=== PATIENT | female | born 1995 | race Two or more races ===

== ENCOUNTER 2020-01-29 07:10 | Emergency (ER) | payer OTHER ==
--- NOTE | 2020-01-29 07:15 | ED Physician Documentation ---
PD HPI HEADACHE - Stated complaint Stated Complaint: HEADACHE - History of Present Illness Timing - onset: How many weeks ago (3) Timing - duration: Weeks (3) Timing - details: Gradual onset (She is started with the right frontal area pain and pressure about 3 weeks ago. At the time there was some nasal congestion but that cleared up. She is continued with a headache daily and continually. No visual changes. No focal weakness. Is 16 wks and talked with her OB yesterday.), Still present Worst headache ever?: Worst headache ever? (She rates the headache as mild to moderate and continual. No history of headaches in the past so this is her worst 1 but does not describe it as very severe nor abrupt) Location: Front, Right (feeling as though her eye is being pushed out.) Quality: Throbbing, Aching. No: Thunderclap Associated symptoms: Nausea. No: Fever, Stiff neck, Vomiting, Weakness, Numbness, Vision changes Improved by: Meds (Tylenol at times, it does help when she takes it.). No: Rest Worsened by: Light (She has found the computer screen to be worsening of her headache this past week. Her alarm bothered her this morning), Noise Contributing factors: Other (16 weeks , without problems. Had morning sickness worse in 1st trimester, has been better. She feels she is adequately hydrated.). No: Hypertension, Recent illness, Trauma Similar symptoms before: Has not had sx before Recently seen: Clinic (She had phone visits with her OB and her primary care yesterday and was directed to come to the ER for evaluation by her primary care. No medications were attempted.) Review of Systems Constitutional: denies: Fever, Chills Nose: reports: Congestion (2-3 weeks ago, improved), Sinus pressure / pain (her pain is behind right eye and in frontal area.). denies: Rhinorrhea / runny nose Throat: denies: Sore throat Respiratory: denies: Dyspnea, Cough GI: reports: Nausea. denies: Vomiting, Diarrhea : reports: Now EGA (16 weeks) Skin: denies: Rash, Lesions Neurologic: reports: Other (no troubles with vision nor speaking nor mood.). denies: Focal weakness, Numbness, Near syncope, Altered mental status Immunocompromised: denies: Immunocompromised PD PAST MEDICAL HISTORY - Past Medical History Past Medical History: No Respiratory: None Neuro: None - Present Medications Home Medications: Ambulatory Orders Medication Instructions Recorded Confirmed Amoxicillin 500 mg PO TID #15 capsule 01/29/20 Cetirizine [ZyrTEC] 10 mg PO DAILY #15 tablet 01/29/20 dexAMETHasone [Decadron] 4 mg PO DAILY #7 tablet 01/29/20 - Allergies Allergies/Adverse Reactions: Allergies Allergy/AdvReac Type Severity Reaction Status Date / Time No Known Drug Allergies Allergy Verified 01/29/20 07:27 PD ED PE NORMAL - Vitals Vital signs reviewed: Yes - General General: Alert and oriented X 3, No acute distress, Well developed/nourished - HEENT HEENT: PERRL, EOMI, Ears normal, Moist mucous membranes, Pharynx benign - Neck Neck: Supple, no meningeal sign, No adenopathy - Cardiac Cardiac: RRR, No murmur - Respiratory Respiratory: Clear bilaterally - Derm Derm: Normal color, Warm and dry, No rash - Neuro Neuro: Alert and oriented X 3, 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, No motor deficit, No sensory deficit, Normal speech Eye Opening: Spontaneous Motor: Obeys Commands Verbal: Oriented GCS Score: 15 Results - Vitals Vitals: Vital Signs - 24 hr 01/29/20 01/29/20 07:19 08:44 Temperature 36.5 C Heart Rate 92 74 Respiratory 16 18 Rate Blood Pressure 121/80 101/67 O2 Saturation 100 100 Oxygen O2 Source Room air - Labs Labs: Laboratory Tests 01/29/20 01/29/20 01/29/20 07:30 08:40 08:40 WBC 7.6 RBC 4.21 Hgb 11.8 L Hct 35.0 L MCV 83.1 MCH 28.0 MCHC 33.7 RDW 13.0 Plt Count 238 MPV 8.4 Neut # (Auto) 5.2 Lymph # (Auto) 1.7 [place] # (Auto) 0.6 Eos # (Auto) 0.0 Baso # (Auto) 0.0 Absolute Nucleated RBC 0.00 Nucleated RBC % 0.0 Sodium 133 L Potassium 3.6 Chloride 101 Carbon Dioxide 23 Anion Gap 9.0 BUN 7 Creatinine 0.5 Estimated GFR (MDRD) 154 Glucose 107 H Calcium 9.0 Total Bilirubin 0.6 AST 16 ALT 14 Alkaline Phosphatase 45 Total Protein 7.4 Albumin 3.6 Globulin 3.8 Albumin/Globulin Ratio 0.9 L Lipase 21 L Urine Color YELLOW Urine Clarity CLEAR Urine pH 7.0 Ur Specific [place] 1.020 Urine Protein NEGATIVE Urine Glucose (UA) NEGATIVE Urine Ketones NEGATIVE Urine Occult Blood NEGATIVE Urine Nitrite NEGATIVE Urine Bilirubin NEGATIVE Urine Urobilinogen 0.2 (NORMAL) Ur Leukocyte Esterase NEGATIVE Ur Microscopic Review NOT INDICATED Urine Culture Comments NOT INDICATED PD MEDICAL DECISION MAKING - ED course Complexity details: considered differential (Her blood pressure is okay at this time. We can check platelets and liver enzymes as well as a urine test but does not sound preeclamptic or help syndrome at this time. It may be sinus headache given some congestion early on. Also consider variant migraine for 3 weeks. Less likely structural.), d/w patient (With the patient is to do some blood tests and empirically treat for sinus or functional headache such as variant migraine. Deferring imaging at this time given the low probability of a mass lesion in general and in lieu of . If persisting headache despite treatment, consider imaging MRI.) Departure - Departure Disposition: 01 Home, Self Care Clinical Impression: Frontal headache Qualifiers: Weeks of gestation: 16 weeks Qualified Code(s): Z3A.16 - 16 weeks gestation of Condition: Stable Record reviewed to determine appropriate education?: Yes Instructions: ED Cephalgia Unspecified Follow-Up: ROBYN BALDERAS MD [Primary Care Provider] - Prescriptions: Amoxicillin 500 mg PO TID #15 capsule dexAMETHasone [Decadron] 4 mg PO DAILY #7 tablet Cetirizine [ZyrTEC] 10 mg PO DAILY #15 tablet Comments: Your basic blood tests are good as is your urine test. At this point I would presume either a sinus related headache and symptoms or possibly a variant migraine with daily headache. We would treat both of these with a trial of 5 to 7 days of a low-dose steroid for inflammation. Considering sinus, also add cetirizine antihistamine twice daily for a couple of days and then daily after that. You can use Tylenol 500 to 650 mg 4 times daily for the headache. Off work today and tomorrow to help with the symptoms. Recheck if not improving well over the next several days and resolved by 3 to 5 days. If you have persistent or worsening symptoms, consideration could be for imaging to ensure no structural abnormalities. MRI would be preferable and follow-up through your primary care. If you were to develop any purulent drainage or fevers, I would also add amoxicillin for consideration of infection. Discharge Date/Time: 01/29/20 09:35
[2020-01-29] MEDS ORDERED: ACETAMINOPHEN 325 MG TABLET PO STA (07:58)
[2020-01-29] MEDS ORDERED: CHERRY SYRUP 10 ML UDC PO ONE (07:58)
[2020-01-29] MEDS ORDERED: CETIRIZINE 10 MG TABLET PO STA (07:58)
[2020-01-29] MEDS ORDERED: DEXAMETHASONE 10 MG/ML VIAL PO STA (07:58)
[2020-01-29 08:34] LABS: BILIRUBIN,URINE NEGATIVE (NEGATIVE); CLARITY,URINE CLEAR (CLEAR); GLUCOSE, URINE (UA) NEGATIVE (NEGATIVE); KETONES,URINE (UA) NEGATIVE (NEGATIVE); LEUKOCYTE ESTERASE, URINE NEGATIVE (NEGATIVE); NITRITE,URINE NEGATIVE (NEGATIVE); OCCULT BLOOD,URINE NEGATIVE (NEGATIVE); PROTEIN,URINE NEGATIVE (NEGATIVE); UROBILINOGEN,URINE 0.2 (NORMAL) E.U./dL (NORMAL)
[2020-01-29 08:46] VITALS: BP 101/67
[2020-01-29 08:47] LABS: BASOPHILS % (AUTO) 0.4 %; EOSINOPHILS % (AUTO) 0.5 %; HGB - HEMOGLOBIN 11.8 g/dL (12.0-16.0); LYMPHOCYTES # (AUTO) 1.7 10^3/uL (1.5-3.5); LYMPHOCYTES % (AUTO) 22.3 %; MEAN CORPUSCULAR HGB CONC 33.7 g/dL (32.0-36.0); MEAN CORPUSCULAR VOLUME 83.1 fL (81.0-99.0); MEAN PLATELET VOLUME 8.4 fL (7.9-10.8); MONOCYTES # (AUTO) 0.6 10^3/uL (0.0-1.0); MONOCYTES % (AUTO) 7.6 %; NEUTROPHILS # (AUTO) 5.2 10^3/uL (1.5-6.6); NEUTROPHILS % (AUTO) 68.7 %; PLT - PLATELET COUNT 238 10^3/uL (130-450); RED BLOOD COUNT 4.21 10^6/uL (4.20-5.40); WHITE BLOOD COUNT 7.6 x10^3/uL (4.8-10.8)
[2020-01-29 08:58] LABS: ALBUMIN 3.6 g/dL (3.2-5.5); ALBUMIN/GLOBULIN RATIO 0.9 (1.0-2.2); BILIRUBIN,TOTAL 0.6 mg/dL (0.2-1.0); CREATININE 0.5 mg/dL (0.4-1.0); TOTAL PROTEIN 7.4 g/dL (6.7-8.2)
== END 2020-01-29 09:35 | disposition home or self-care (01) ==
LOC: ED 07:10
DX: O99.891 Other specified diseases and conditions complicating pregnancy (principal); R51.9 Headache, unspecified; Z3A.16 16 weeks gestation of pregnancy
CPT/HCPCS: 36415; 80053; 81003; 83690; 85025; 99283; 99284; A9270; 81001; 87086

== ENCOUNTER 2020-02-29 15:41 | Outpatient (CLI) | payer OTHER ==
[2020-02-29 16:24] VITALS: BP 118/78
--- NOTE | 2020-02-29 17:53 | HISTORY & PHYSICAL EXAMINATION ---
DATE OF SERVICE: 02/29/2020 Physician: Stefan Beltran MD IDENTIFICATION: The patient is a 24-year-old G1, female whose EDC who reports her EDC is July 2020. This makes her 20 weeks and 6 days. We attempted several times to obtain her records from [facility] and have been unsuccessful. CHIEF COMPLAINT: Decreased motion. HISTORY OF PRESENT ILLNESS: The patient states she has noted no motion since last evening. She states she has felt motion prior to that. She has tried taking fluids or carbohydrates and sensing fluid was unsuccessful. Upon arrival here the nurse was able to palpate as well as hear heart tones and also note motion. The patient's last appointment was 02/13, at which time she had an ultrasound for anatomy. The patient's repeat reports that she has had no notification of any abnormalities. She denies any bleeding. She denies any trauma. She denies any falls. She reports her blood type to be O positive. She denies any other problems throughout her . PAST MEDICAL HISTORY: Positive for some headaches. PAST SURGICAL HISTORY: Negative. ALLERGIES: NONE KNOWN. CURRENT MEDICATIONS: vitamins as well as Tylenol for headaches. HABITS: The patient denies use of alcohol, tobacco, street or addictive drugs. SOCIAL HISTORY: The patient is [employer]. She lives with an active duty person and is in a safe, stable environment. 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 REVIEW OF SYSTEMS: Positive only for headaches. PHYSICAL EXAMINATION VITAL SIGNS: Temperature 37.8, pulse is 97, blood pressure 118/78, saturation 100%. HEENT: Pupils are equal, round. Extraocular muscles are intact. Mouth was not checked in that she had a mask and placed. Thyroid is not palpably enlarged. HEART: Regular rate and rhythm without murmurs. LUNGS: Lung [place] are clear without rales or wheezes. BACK: No spinal or CVA tenderness noted. ABDOMEN: Soft, nontender at this time. No pelvic was performed at this time as it is not indicated. IMPRESSION 1. A 24-year-old female at 20.6 weeks. 2. The patient has an inability to sense motion. PLAN: We have noted cardiac activity as well as palpated motion by the nurse. The patient is reassured. I have counseled her that detecting motion at the end of the day when she has nothing else to fill her mind with and do this after she eats. TD: 02/29/2020 17:01 MAYRA
== END 2020-02-29 17:00 | disposition home or self-care (01) ==
LOC: WFO 15:41 → FBP 15:44 → WFO 17:00
PROVIDERS: ATTEND Obstetrics & Gynecology
DX: O36.8120 Decreased fetal movements, second trimester, not applicable or unspecified (principal); Z3A.20 20 weeks gestation of pregnancy
CPT/HCPCS: 99213

== ENCOUNTER 2020-03-21 20:19 | Emergency (ER) | payer OTHER ==
[2020-03-21 20:59] LABS: BILIRUBIN,URINE NEGATIVE (NEGATIVE); GLUCOSE, URINE (UA) NEGATIVE (NEGATIVE); KETONES,URINE (UA) NEGATIVE (NEGATIVE); LEUKOCYTE ESTERASE, URINE NEGATIVE (NEGATIVE); NITRITE,URINE NEGATIVE (NEGATIVE); OCCULT BLOOD,URINE NEGATIVE (NEGATIVE); PROTEIN,URINE NEGATIVE (NEGATIVE); UROBILINOGEN,URINE 0.2 (NORMAL) E.U./dL (NORMAL)
[2020-03-21 21:01] LABS: CLARITY,URINE CLEAR (CLEAR)
--- NOTE | 2020-03-21 21:56 | ED Physician Documentation ---
PD HPI FEVER - Stated complaint Stated Complaint: FEVER/24 WEEKS - Chief complaint Chief Complaint: Fever - History obtained from History obtained from: Patient - History of Present Illness Timing - onset: Today Timing details: Abrupt onset Pain level max: 0 Pain level now: 0 Associated symptoms: Chills, Sweats (mild). No: Ear pain, Nasal congestion, Rhinorrhea, Sore throat, Dry cough, Productive cough, Chest pain, Dyspnea, Abdominal pain, NVD, Urinary symptoms, Rash/skin lesion Recently seen: Not recently seen - Additional information Additional information: patient is approximately 24 weeks . c/o fever Tmax 101 noted this evening. She has had chills, mild diaphoresis but otherwise feeling well. Review of Systems Constitutional: reports: Fever, Chills, Sweats. denies: Fatigue Throat: denies: Sore throat Cardiac: denies: Chest pain / pressure Respiratory: denies: Dyspnea, Cough GI: denies: Abdominal Pain, Nausea, Vomiting : reports: Now EGA (24 weeks). 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) - Past Surgical History Past Surgical History: No - Allergies Allergies/Adverse Reactions: Allergies Allergy/AdvReac Type Severity Reaction Status Date / Time No Known Drug Allergies Allergy Verified 03/21/20 20:22 - Social History Does the pt smoke?: No Smoking Status: Never smoker Does the pt drink ETOH?: No Does the pt have substance abuse?: No - Immunizations Immunizations are current?: Yes - POLST Patient has POLST: No PD ED PE NORMAL - Vitals Vital signs reviewed: Yes - General General: Alert and oriented X 3, No acute distress, Well developed/nourished - HEENT HEENT: Moist mucous membranes - Neck Neck: Supple, no meningeal sign - Cardiac Cardiac: RRR, No murmur - Respiratory Respiratory: No respiratory distress, Clear bilaterally - Abdomen Abdomen: Soft, Non tender Results - Vitals Vitals: Vital Signs - 24 hr 03/21/20 03/21/20 20:20 23:50 Temperature 37.3 C 37.0 C Heart Rate 119 H 90 Respiratory 18 16 Rate Blood Pressure 111/69 112/70 O2 Saturation 96 98 Oxygen O2 Source Room air - Labs Labs: Laboratory Tests 03/21/20 03/21/20 20:50 22:16 Urine Color YELLOW Urine Clarity CLEAR Urine pH 7.0 Ur Specific [place] 1.015 Urine Protein NEGATIVE Urine Glucose (UA) NEGATIVE Urine Ketones NEGATIVE Urine Occult Blood NEGATIVE Urine Nitrite NEGATIVE Urine Bilirubin NEGATIVE Urine Urobilinogen 0.2 (NORMAL) Ur Leukocyte Esterase NEGATIVE Ur Microscopic Review NOT INDICATED Urine Culture Comments NOT INDICATED Nasal Adenovirus (PCR) NOT DETECTED Nasal B. parapertussis DNA (PCR) NOT DETECTED Nasal Coronavir 229E PCR NOT DETECTED Nasal Coronavir HKU1 PCR NOT DETECTED Nasal Coronavir NL63 PCR NOT DETECTED Nasal Coronavir OC43 PCR NOT DETECTED Nasal Enterovir/Rhinovir PCR NOT DETECTED Nasal Influenza B PCR NOT DETECTED Nasal Influenza A PCR NOT DETECTED Nasal Parainfluen 1 PCR NOT DETECTED Nasal Parainfluen 2 PCR NOT DETECTED Nasal Parainfluen 3 PCR NOT DETECTED Nasal Parainfluen 4 PCR NOT DETECTED Nasal RSV (PCR) NOT DETECTED Nasal B.pertussis DNA PCR NOT DETECTED Nasal C.pneumoniae (PCR) NOT DETECTED Tk Human Metapneumo PCR NOT DETECTED Nasal M.pneumoniae (PCR) NOT DETECTED Nasal SARS-CoV-2 (PCR) NOT DETECTED PD MEDICAL DECISION MAKING - ED course Complexity details: reviewed results, re-evaluated patient, considered differential, d/w patient Departure - Departure Disposition: 01 Home, Self Care Clinical Impression: , Fever Condition: Good Instructions: ED Fever Unconf Cause Forms: Activity restrictions Discharge Date/Time: 03/21/20 23:50
[2020-03-21 23:21] LABS: C. PNEUMONIAE- RESP PCR PANEL NOT DETECTED
[2020-03-21 23:52] VITALS: BP 112/70
== END 2020-03-21 23:50 | disposition home or self-care (01) ==
LOC: ED 20:19
DX: O99.891 Other specified diseases and conditions complicating pregnancy (principal); R50.9 Fever, unspecified; Z3A.24 24 weeks gestation of pregnancy; Z20.828 Contact with and (suspected) exposure to other viral communicable diseases
CPT/HCPCS: 0202U; 81003; 99282; 99283; 81001; 87086

== ENCOUNTER 2020-04-19 12:13 | Outpatient (CLI) | payer OTHER | END 2020-04-19 12:14 | disposition home or self-care (01) | LOC: LAB 12:13 | PROVIDERS: ATTEND Obstetrics & Gynecology | DX: Z36.89 Encounter for other specified antenatal screening (principal) | CPT/HCPCS: 36415; 82950 ==

== ENCOUNTER 2020-05-09 18:43 | Outpatient (CLI) | payer OTHER ==
--- NOTE | 2020-05-12 17:20 | Ultrasound Report ---
PROCEDURE: OB F/U or Repeat INDICATIONS: UTERINE SIZE/DATE DISCREPANCY OUTSIDE/PRIOR DATING DATA: Last menstrual period (LMP): 10/03/2019. LMP-based estimated date of delivery (ASHLEE): 07/09/2020. First dating scan (date and location): 05/09/2020, this study. Estimated date of delivery (ASHLEE) from first dating scan: 07/09/2020, from provider. TECHNIQUE: Real-time scanning was performed of the fetus, with image documentation and biometric measurements. Endovaginal scanning: Not needed COMPARISON: No prior imaging available for review.. FINDINGS: General: A single living intrauterine gestation is present. Presentation: Vertex Placenta: Placental position is posterior, without previa. Amniotic fluid index: 11.1 cm, 16.9 percentile for gestational age. heart rate: 149 beats per minute. Maternal cervical canal: 4.0 cm long; normal length is 2.5 cm or more. biometrics: Biparietal diameter: 8.3 cm, 33 weeks 1 day Head circumference: 29.7 cm, 32 weeks 6 days Abdominal circumference: 27.7 cm, 31 weeks 6 days Femur length: 6.2 cm, 32 weeks 1 day Estimated gestational age from initial scan: not applicable. Composite gestational age from present scan: 32 weeks 4 days Estimated weight and percentile: 1913 g, 68th percentile Measurement variability in biometric dating: +/- 10 days from 12-20 weeks gestation, +/- 2 weeks from 20-30 weeks gestation, +/- 3 weeks at 30 weeks gestation or more. Other: Limited evaluation of the anatomy, no abnormality seen. IMPRESSION: Appropriate interval growth, delivery date is projected to be centered on 07/09/2020 from information provided by the provider. Limited evaluation of anatomic assessment due to current gestational age. No anomalies suspected based on the images from this study. Normal amniotic fluid, c urrent estimated weight is 1913 g. Reviewed by: Len Canas MD on 05/12/2020 5:18 PM PST Approved by: Len Canas MD on 05/12/2020 5:18 PM PST Station ID: [id number]
== END 2020-05-09 18:44 | disposition home or self-care (01) ==
LOC: DI 18:43
PROVIDERS: ATTEND Advanced Practice Midwife
DX: O26.849 Uterine size-date discrepancy, unspecified trimester (principal); Z3A.32 32 weeks gestation of pregnancy

== ENCOUNTER 2020-06-01 11:31 | Outpatient (CLI) | payer OTHER ==
[2020-06-01 11:53] LABS: HGB - HEMOGLOBIN 9.8 g/dL (12.0-16.0); MEAN CORPUSCULAR HEMOGLOBIN 23.6 pg (27.0-31.0); MEAN CORPUSCULAR HGB CONC 30.2 g/dL (32.0-36.0); MEAN CORPUSCULAR VOLUME 78.3 fL (81.0-99.0); MEAN PLATELET VOLUME 9.1 fL (7.9-10.8); RED BLOOD COUNT 4.15 10^6/uL (4.20-5.40); RED CELL DISTRIBUTION WIDTH 14.3 % (12.0-15.0)
[2020-06-01 11:55] LABS: CREATININE,URINE 164.9 mg/dL; PROTEIN/CREATININE RATIO,URINE 0.1 (<=0.2)
[2020-06-01 12:03] LABS: ALBUMIN/GLOBULIN RATIO 0.7 (1.0-2.2); BILIRUBIN,TOTAL 0.7 mg/dL (0.2-1.0); CREATININE 0.6 mg/dL (0.4-1.0); TOTAL PROTEIN 7.1 g/dL (6.7-8.2)
== END 2020-06-01 11:32 | disposition home or self-care (01) ==
LOC: LAB 11:31
PROVIDERS: ATTEND Nurse Practitioner Obstetrics & Gynecology
DX: R10.11 Right upper quadrant pain (principal); L29.9 Pruritus, unspecified
CPT/HCPCS: 36415; 80053; 82542; 82570; 84156; 85027

== ENCOUNTER 2020-06-13 07:00 | Outpatient (CLI) | payer OTHER | END 2020-06-13 23:59 | disposition home or self-care (01) | LOC: LAB.R 07:00 | PROVIDERS: ATTEND Advanced Practice Midwife | DX: Z34.90 Encounter for supervision of normal pregnancy, unspecified, unspecified trimester (principal); Z36.85 Encounter for antenatal screening for Streptococcus B | CPT/HCPCS: 87797 ==

== ENCOUNTER 2020-07-06 08:08 | Inpatient (IN) | payer OTHER ==
[2020-07-06] MEDS ORDERED: fentaNYL 100 MCG/2 ML VIAL IVP PRN (09:38)
[2020-07-06] MEDS ORDERED: LIDOCAINE-MPF 1% 30 ML VIAL ID PRN (09:38)
[2020-07-06] MEDS ORDERED: SODIUM CHLORIDE FLUSH 0.9% 10 ML SYRINGE IVP PRN (09:38)
[2020-07-06] MEDS ORDERED: miSOPROStoL 200 MCG TABLET BC PRN (09:38)
[2020-07-06] MEDS ORDERED: OXYTOCIN/SODIUM CHLORIDE 500 ML IV PRN (09:38)
[2020-07-06] MEDS ORDERED: CARBOPROST TROMETHAMINE 250 MCG/ML AMP IM PRN (09:38)
[2020-07-06] MEDS ORDERED: TRANEXAMIC ACID IN NACL 1,000 MG/100 ML BAG IV PRN (09:38)
[2020-07-06] MEDS ORDERED: METOCLOPRAMIDE 10 MG/2 ML VIAL IVP PRN (09:38)
[2020-07-06] MEDS ORDERED: OXYTOCIN 10 UNIT/ML VIAL IM PRN (09:38)
[2020-07-06] MEDS ORDERED: METHYLERGONOVINE 0.2 MG/ML VIAL IM PRN (09:38)
[2020-07-06] MEDS ORDERED: ONDANSETRON 4 MG/2 ML VIAL IVP PRN (09:38)
[2020-07-06 09:47] LABS: BASOPHILS % (AUTO) 0.2 %; EOSINOPHILS % (AUTO) 0.4 %; HCT - HEMATOCRIT 33.1 % (37.0-47.0); LYMPHOCYTES # (AUTO) 1.8 10^3/uL (1.5-3.5); LYMPHOCYTES % (AUTO) 20.1 %; MEAN CORPUSCULAR HEMOGLOBIN 21.7 pg (27.0-31.0); MEAN CORPUSCULAR HGB CONC 30.2 g/dL (32.0-36.0); MEAN CORPUSCULAR VOLUME 71.8 fL (81.0-99.0); MEAN PLATELET VOLUME 9.7 fL (7.9-10.8); MONOCYTES # (AUTO) 0.7 10^3/uL (0.0-1.0); MONOCYTES % (AUTO) 7.2 %; NEUTROPHILS # (AUTO) 6.5 10^3/uL (1.5-6.6); NEUTROPHILS % (AUTO) 71.5 %; PLT - PLATELET COUNT 349 10^3/uL (130-450); RED BLOOD COUNT 4.61 10^6/uL (4.20-5.40); RED CELL DISTRIBUTION WIDTH 16.3 % (12.0-15.0); WHITE BLOOD COUNT 9.1 x10^3/uL (4.8-10.8)
[2020-07-06] MEDS ORDERED: miSOPROStoL 100 MCG TABLET BC SCH ×2 (10:00→14:45)
--- NOTE | 2020-07-06 10:08 | HISTORY & PHYSICAL EXAMINATION ---
Admit History - : 2 Parity: 0 Premature: 0 Ectopic: 0 : 1 Risk/History: positive: None Complications This : positive: None Smoking Status: Former smoker - Mother's Labs Mother's Blood Type: positive: O Mother's RH: positive: Positive GBS: positive: Group B Step Negative Rubella Status: positive: Immune - Other Maternal History Other Maternal History: -24yo G2P*0010 at 39.4 wks gestation who presents to Labor and Delivery for pre- induction cervical ripening -Reports movement -Denies VB/LOF -Reports unaware of contractions, rates 0/10 pain - care with [facility] which has been adequate after narciso from [facility] at 25.5wks - Complications *none -Dating Criteria *LMP 10/03/2019 gives ASHLEE 07/09/2020 *US on 12/16/2019 at 11+1 wga gives ASHLEE 07/05/2020, cwd -OB Hx *G1: 2019- SAB *G2:current -Medications * vitamin-daily *Fe 325mg daily -Allergies *NKDA -Medical History *Non contributory -Surgical History *None -Family History *Father- [place] at 46yo *Brother- HTN -Social History *Former Smoker - Labs, Immunizations, and Findings DATING: LMP 10/03/2019 gives ASHLEE 07/09/2020 US on 12/16/2019 at 11+1 wga gives ASHLEE 07/05/2020, cwd O pos/Rub imm VZV- immune Quad wnl FAS 52%ile, CL 3.7 cm, 3VC, right lateral placenta, FAS wnl, possible small anterior fibroid 05/09/2020 Growth & TRINO: TRINO 11.1 (16.9%); EFW 68% GCCT neg Flu vaccine given TDAP: 04/21/2020 Glucola: 112 HSV: denies in self and partner GBS at 36.2wks- NEGATIVE Breast pump RX: Has alternative plan- will send for Provider signature MOD: . Boy: Bethany "Reyna". Husb: Mariano (stationed elsewhere, will desire induction due to requested leave)' IOL scheduled for 07/06/2020 at 0730. Consented. 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 Condoms -SVE 280/-2/soft/post -Vertex by digital exam -EFW by fay's 7.5# - Physical Exam: Normocephalic, atraumatic Heart RRR w/o murmur Lungs clear and equal bilaterally Abdomen gravid, soft, nontender Edema- none Psych- wnl -FHTs per flowsheet -Assessment *24yo at 39.4wks gestation who presents for elective induction *Nesbitt Score 7- requires cervical ripening *Uterine activity mild by palpation- will give half dose of misoprostol * Heart Tones- Category I -Plan *Admit to OBS(until active labor, SROM, AROM, epidural, or pitocin) *Cervical ripening with Misoprostol (25mcg BC) *Monitoring- Continuous *Comfort measures available- position changes, whirlpool tub, fentanyl, and epid ural per maternal preference *Diet/Activity- per maternal preference *Anticipate Meds/Allgy - Allergies Allergies/Adverse Reactions: Allergies Allergy/AdvReac Type Severity Reaction Status Date / Time No Known Drug Allergies Allergy Verified 03/21/20 20:22 Review of Systems - All Other Systems All Other Systems: reports: Reviewed and negative Physical - Abdominal Exam Vital Signs: Temp Pulse Resp BP Pulse Ox 37.4 C 107 H 16 120/80 07/06/20 08:35 07/06/20 08:35 07/06/20 08:35 07/06/20 08:35 Contraction Frequency (min/apart): 2-3 Contraction Intensity: positive: Mild (by palpation, not felt by patient) Uterine Resting Tone: positive: Soft - Monitoring Heart Rate Baseline: 135 Strip Review: positive: Category I (moderate variability, accels 15x15, no decels) - Presentation Presentation: positive: Vertex (by digital exam) - Vaginal Exam Membranes: positive: Membranes intact Dilation (in cm): 2 Effacement (%): 80 Station: positive: -2 Cervical Position: positive: Posterior Plan for Labor - Plan For Labor I expect patient to be DC'd or transferred within 96 hours.: Yes
[2020-07-06] MEDS ORDERED: SODIUM CHLORIDE FLUSH 0.9% 10 ML SYRINGE IVP SCH (17:00)
[2020-07-06] MEDS: LACTATED RINGERS 1,000 ML IV SCH ×2 (17:00→20:27)
[2020-07-06] MEDS ORDERED: ROPIVACAINE 0.2% 200 MG/100 ML BAG EP ONE (18:59)
[2020-07-06] MEDS ORDERED: ROPIVACAINE 0.2% 200 MG/100 ML BAG EP PRN (19:17)
[2020-07-06] MEDS ORDERED: NALOXONE 0.4 MG/ML VIAL IVP PRN (19:17)
[2020-07-06] MEDS ORDERED: ePHEDrine 50 MG/ML VIAL IVP PRN (19:17)
[2020-07-06] MEDS ORDERED: NALBUPHINE 10 MG/ML AMP IVP PRN (19:17)
--- NOTE | 2020-07-06 19:17 | ANESTHESIA ---
Pre-Anesthesia VS, & Labs - Diagnosis active labor - Procedure vaginal delivery Vital Signs: Temp Pulse Resp BP Pulse Ox 37.4 C 107 H 16 120/80 07/06/20 08:35 07/06/20 08:35 07/06/20 08:35 07/06/20 08:35 Height: 5 ft Weight (kg): 75.296 kg Body Mass Index: 32.4 BMI Classification: Obese - NPO Other (clear liquids) - Is Patient ?: Yes - Lab Results Current Lab Results: Laboratory Tests 07/06/20 08:50: Blood Type O POSITIVE, Antibody Screen NEGATIVE 07/06/20 08:50: WBC 9.1, RBC 4.61, Hgb 10.0 L, Hct 33.1 L, MCV 71.8 L, MCH 21.7 L, MCHC 30.2 L, RDW 16.3 H, Plt Count 349, MPV 9.7, Neut # (Auto) 6.5, Lymph # (Auto) 1.8, [place] # (Auto) 0.7, Eos # (Auto) 0.0, Baso # (Auto) 0.0, Absolute Nucleated RBC 0.00, Nucleated RBC % 0.0 Fish Bones: 07/06/20 08:50 Home Medications and Allergies Active Medications Acetaminophen (Acetaminophen 325 Mg Tablet) 650 mg PO Q6H PRN PRN Reason: Pain or Fever Carboprost Tromethamine (Carboprost Tromethamine 250 Mcg/Ml Amp) 250 mcg IM Q15M PRN PRN Reason: Step 4: Hemorrhage protocol Stop: 07/11/20 09:41 Fentanyl (Fentanyl 100 Mcg/2 Ml Vial) 50 mcg IVP Q1H PRN PRN Reason: PAIN Oxytocin/Sodium Chloride (Pitocin/Sodium Chloride) 500 mls @ 999 mls/hr IV PRN PRN; Protocol PRN Reason: POST- HEMORR PREVENTION Stop: 07/11/20 09:41 Tranexamic Acid (Tranexamic 1,000 Mg/100ml-Nacl) 1,000 mg in 100 mls @ 600 mls/hr IV .ONCE PRN PRN Reason: EBL >1200mL and within 3hr Stop: 07/11/20 09:41 Lactated Ringer's (Lr) 1,000 mls @ 100 mls/hr IV .Q10H DEAN Last Infusion: 07/06/20 17:33 Dose: 125 mls/hr Documented by: Lidocaine HCl (Lidocaine-Mpf 1% 30 Ml Vial) 30 ml ID .ONCE PRN PRN Reason: PERINEAL REPAIR Stop: 07/11/20 09:41 Methylergonovine Maleate (Methylergonovine 0.2 Mg/Ml Vial) 0.2 mg IM .ONCE PRN PRN Reason: Step 2: Hemorrhage protocol Stop: 07/11/20 09:41 Metoclopramide HCl (Metoclopramide 10 Mg/2 Ml Vial) 10 mg IVP Q6H PRN PRN Reason: Nausea / Vomiting Last Admin: 07/06/20 18:17 Dose: 10 mg Documented by: Misoprostol (Misoprostol 200 Mcg Tablet) 800 mcg BC .ONCE PRN PRN Reason: Step 3: Hemorrhage protocol Stop: 07/11/20 09:41 Misoprostol (Misoprostol 100 Mcg Tablet) 25 mcg BC Q4HR DEAN Last Admin: 07/06/20 10:15 Dose: 25 mcg Documented by: Misoprostol (Misoprostol 100 Mcg Tablet) 50 mcg BC ONCE DEAN Stop: 07/06/20 23:00 Last Admin: 07/06/20 15:01 Dose: 50 mcg Documented by: Ondansetron HCl (Ondansetron 4 Mg/2 Ml Vial) 4 mg IVP Q4HR PRN PRN Reason: Nausea / Vomiting Last Admin: 07/06/20 17:31 Dose: 4 mg Documented by: Oxytocin (Oxytocin 10 Unit/Ml Vial) 10 unit IM .ONCE PRN PRN Reason: Step one: If no IV access Stop: 07/11/20 09:41 Sodium Chloride (Sodium Chloride Flush 0.9% 10 Ml Syringe) 10 ml IVP 0100, 0900,1700 [facility] Sodium Chloride (Sodium Chloride Flush 0.9% 10 Ml Syringe) 10 ml IVP PRN PRN PRN Reason: NEEDED PER PROVIDER ORDERS Allergies/Adverse Reactions: Allergies Allergy/AdvReac Type Severity Reaction Status Date / Time No Known Drug Allergies Allergy Verified 03/21/20 20:22 Anes History & Medical History - Anesthetic History Family history of Anesthesia Complications: Denies Family history of Malignant Hyperthermia: Denies - Medical History Cardiovascular: reports: None Pulmonary: reports: None Gastrointestinal: reports: None Urinary: reports: None Neuro: reports: None Musculoskeletal: reports: None Endocrine/Autoimmune: reports: None Blood Disorders: reports: None Skin: reports: None Smoking Status: Former smoker Psychosocial: reports: No issues indicated History of Cancer?: No - Obstetrical History : 2 Parity: 0 Events: positive: None Complications: positive: None Exam General: Alert, Oriented x3, Cooperative, No acute distress Dental: WNL Mouth Openin Fingerbreadth Neck Mobility: Normal Mallampati classification: II Thyromental Distance: 4-6 cm Mental/Cognitive Status: Alert/Oriented X3, Normal for patient Plan Anesthesia Type: Epidural Consent for Procedure(s) Verified and Reviewed: Yes Code Status: Attempt Resuscitation ASA classification: 2-Mild systemic disease Is this case an emergency?: No
--- NOTE | 2020-07-06 19:50 | PROVIDER PROGRESS NOTE ---
Labor Progress Note - Uterine Monitoring Uterine Monitoring Mode: positive: External toco Contraction Frequency (min/apart): 2-3 Contraction Intensity: positive: Moderate Uterine Resting Tone: positive: Soft - Monitoring Monitor Mode: positive: External ultrasound Heart Rate Baseline: 135 Heart Rate Variability: positive: Moderate (6-25 bmp) Accelerations: positive: Present, 15x15 Decelerations: positive: None Strip Review: positive: Category I - Vaginal Exam Dilation (in cm): 6 Effacement (%): 90 Station: -1 - Labor Progress Note Labor Progress Note/Additional Text: S: Karla is now comfortable in bed with an epidural. She is smiling and reports absolute satisfaction with her pain management. She reported a gush of fluid that was noted to be clear. We discussed the process of labor moving forward, options for SVE and interventions. FOB supportive at bedside. O: SVE /-1 per RN prior to SROM SROM at 1923 for moderate and clear Epidural present S/P one 25mcg and one 50mcg dose misoprostol, last dose at 1501 A: 24yo at 39.4wks gestation in active labor FHT Cat I Utx effective Epidural effective P: Anticipate Continuous Monitoring Clear fluids Frequent position changes Will check in 4-6 hrs or sooner PRN
[2020-07-06] MEDS ORDERED: WITCH HAZEL/GLYCERIN 1 PAD TOP PRN (23:13)
[2020-07-06] MEDS ORDERED: HYDROCORTISONE 1% CREAM 28 GM TUBE PR PRN (23:13)
--- NOTE | 2020-07-06 23:13 | DELIVERY NOTE ---
Delivery Note - Infant Delivery Method Infant Delivery Method: positive: Spontaneous vaginal delivery - Presentation Presentation: positive: Vertex, CARRIE - left occiput anterior - Amniotic Fluid Description Amniotic Fluid Description: positive: Clear - Laceration Laceration: positive: Periurethral (left) - Suture Suture Type: positive: Vicryl Suture Size: positive: 3-0 - Delivery Outcome Delivery Outcome: positive: Livebirth - [place]: positive: Placed in direct skin contact with mother, Stimulated, [place] used [place] sex: positive: Male : 7 : 9 - Cord Cord: positive: 3 vessels - Placenta Placenta: positive: Intact, Spontaneous - Estimated Blood Loss Estimated Blood Loss (in cc): 200 - Post Delivery Events Post Delivery Events: positive: No post delivery events - Delivery Comments (Free Text/Narrative) Delivery Comments (Free Text/Narrative): Note: Labor: This 24 year old, , @40.5wks gestation by 11.10week Ultrasound, confirmed by LMP, presented @0800 for elective IOL. Cervix was 2/80/-2 and vertex. FHR pattern demonstrated 145 baseline in a Category I pattern. Misoprostol x2 given for cervical ripening, then isadora spontaneously. Normal labor course. Epidural placed upon maternal request. SROM occurred @ 1923and amount and color of fluid were noted to be moderate and clear. She progressed to complete at 2212 and began pushing efforts at 2220. : Normal of a 3920gm male infant, named Bethany, on 07/06/2020 @ 2246. Nuchal present and loose, easily reduced. The was placed on maternal abdomen, stimulated, dried and placed skin to skin. Apgars 7 at one minute and 9 at five minutes. The umbilical cord was allowed to stop pulsating at which time it was doubly clamped by CNM and cut by FOB. Pitocin administered via IV for hemostasis. Fundal massage and gentle cord traction applied for active third stage management. Cord blood was obtained. Placenta delivered spontaneously and intact at 2258. Three vessel cord. EBL 200mL. Fourth Stage: Uterine fundus firm and without excessive bleeding. The perineum, vagina, and cervix were inspected and found to have sustained a small left labial/periurethral laceration which was repaired with a 3-0 vicryl in standard fashion under sterile conditions. Vaginal examination following repair was done. Tissues well approximated. initiated. Family bonding well. Both mother and baby are in stable condition.
[2020-07-07] MEDS: ACETAMINOPHEN 325 MG TABLET PO PRN ×4 (01:48→20:23)
[2020-07-07] MEDS: IBUPROFEN 600 MG TABLET PO SCH ×4 (01:48→20:23)
[2020-07-07] MEDS: DOCUSATE SODIUM 100 MG CAPSULE PO PRN ×2 (08:11→20:24)
--- NOTE | 2020-07-07 21:00 | PROVIDER PROGRESS NOTE ---
Subjective - Prog Note Date Prog Note Date: 07/07/20 Prog Note Time: 10:00 - Subjective Pt reports feeling: Improved Subjective: S: Karla is resting in bed and baby. She reports as going well, although her left nipple is a little tender which she attributes to a poor latch earlier this morning. She reports her bleeding as light and her pain as well controlled with PO pain meds O: Lochia rubra Fundus firm A: 24yo s/p on pp day 1 Normal recovery P: Continue with routine care Evaluate for discharge possibly tomorrow Objective - Vital Signs/Intake & Output Vital Signs: Vital Signs x48h Temp Pulse Resp BP Pulse Ox 07/07/20 20:15 37.1 C 88 18 113/64 07/07/20 15:42 37.0 C 102 H 16 108/62 97 Intake & Output: Intake & Output 07/04/20 07/05/20 07/06/20 07/07/20 23:59 23:59 23:59 23:59 Intake Total 3247.5 720 Output Total 20 1440 Balance 3227.5 -720 - Lab Results Fish Bones: 07/06/20 08:50 Other Labs: Lab Results x24hrs 07/06/20 Range/Units 10:04 Coronavirus (PCR) NEGATIVE
[2020-07-08] MEDS: IBUPROFEN 600 MG TABLET PO SCH ×2 (02:24→08:55)
[2020-07-08] MEDS: ACETAMINOPHEN 325 MG TABLET PO PRN ×2 (02:25→08:56)
[2020-07-08 08:33] VITALS: BP 113/75
[2020-07-08] MEDS: DOCUSATE SODIUM 100 MG CAPSULE PO PRN (08:56)
--- NOTE | 2020-07-08 11:51 | PROVIDER PROGRESS NOTE ---
Subjective - Prog Note Date Prog Note Date: 07/08/20 Prog Note Time: 11:51 - Subjective Pt reports feeling: Improved Subjective: S: Karla is resting in bed, and baby is swaddled and asleep in the bassinet. FOB is supportive at bedside. She reports as going well and her bleeding as very light. When she gets up to urinate ever 2-3 hours, only her tucks pads have a little bit of blood on them. She desires discharge home today. O: Lochia rubra-light Fundus firm A: 24yo s/p on pp day 2 Normal recovery P: Continue with routine care Discharge to home today Objective - Vital Signs/Intake & Output Vital Signs: Vital Signs x48h Temp Pulse Resp BP Pulse Ox 07/08/20 08:33 36.6 C 79 20 113/75 100 07/08/20 04:59 37.0 C 94 16 110/62 99 Intake & Output: Intake & Output 07/05/20 07/06/20 07/07/20 07/08/20 23:59 23:59 23:59 23:59 Intake Total 3247.5 720 Output Total 20 1440 Balance 3227.5 -720 - Lab Results Fish Bones: 07/06/20 08:50
--- NOTE | 2020-07-08 11:54 | Discharge Plan ---
Discharge Plan Problem Reviewed?: Yes Disposition: Home, Self Care Condition: Good Diet: Regular Activity Restrictions: No Restrictions Shower Restrictions: No Driving Restrictions: No Weight Bearing: Full Weight Additional Instructions or Follow Up instructions: Follow up with Midwifery in 1 and 6 weeks No Smoking: If you smoke, Please STOP! Call for help. Follow-up with: Elena Hunt ARNP [Provider Admit Priv/Credential] -
--- NOTE | 2020-07-08 11:59 | DISCHARGE SUMMARY ---
Discharge Summary Condition at Discharge: Good Discharge Disposition: 01 Home, Self Care - HPI History of Present Illness: Admit Date 07/06/2020 Discharge Date 07/08/20 Diagnosis on Admission: 1. A 24yo at 39.4 week intrauterine 2. Early Active Labor Diagnosis on Discharge 1. A 24yo s/p spontaneous vaginal delivery on 07/06/2020 2. Normal recovery Brief History: She is a patient at [facility] who presented on 07/06/2020 for elective IOL with report of contractions. The patient was found to contract every 2 to 3 minutes and her cervix was 2cm dilated, 80%effaced, and -2 station. Her cervix was ripened with misoprostol, then she progressed physiologically and spontaneously delivered a viable male named Bethany. Apgars were 7 and 9- and 1 and 5 minutes respectively. EBL 200mL. The patient has a small left labial laceration that was repaired with 3-0 vicryl in usual fashion under sterile conditions. She has been doing well in her course. She is ambulating and tolerating a regular diet. She is urinating without difficulty and her lochia is normal. Her pain is well controlled with oral medications. She will be discharged home today on day #2 without need for prescriptions. She intends to follow up with Midwifery at [facility] in 1, and 6 weeks for routine visit. She has been given precautions to call if she has any worsening fevers, chills, abdominal pain, increased bleeding or foul smelling vaginal lochia. - ALLERGIES Allergies/Adverse Reactions: Allergies Allergy/AdvReac Type Severity Reaction Status Date / Time No Known Drug Allergies Allergy Verified 07/06/20 20:37 - MEDICATIONS Home Medications: Ambulatory Orders Medication Instructions Recorded Confirmed No122/Iron/Folic Acid 1 tab PO DAILY 07/06/20 07/06/20 [ Multi Tablet] - LABS Result Diagrams: 07/06/20 08:50
--- NOTE | 2020-07-08 14:49 | Labor Flowsheet ---
Labor Flowsheet Datetime Report Generated by CPN: 07/08/2020 14:48 Datetime: 07/07/2020 08:28 VITAL SIGNS NBP Sys/Meredith/Mean (mmHg): 110 : 65 : 76 Pulse: 89 Datetime: 07/07/2020 01:00 Stage of : Datetime: 07/06/2020 22:58 LaborFlag: Labor Datetime: 07/06/2020 22:53 Membranes Ruptured Date/Time: 07/06/2020 19:23 Cervical Ripening Agents: Cytotec @ Datetime: 07/06/2020 22:46 UTERINE ACTIVITY Monitor Mode: Palpation Frequency (min): 1-2 Quality: Strong Duration (sec): 50-70 Pattern: Normal: <= 5 Contractions in 10 Minutes Resting Tone (Palpate): Relaxed ASSESSMENT A Monitor Mode: External US FHR Baseline Rate : 150 Variability: Moderate 6-25 bpm Accelerations: 15X15 Category: Category II Datetime: 07/06/2020 22:35 I/O Interventions: Bro Discontinued Patient Care Comments: tip intact, pt tolerated well Datetime: 07/06/2020 22:30 Decelerations: Late; Variable; Prolonged Pushing Progress: Descent with Pushing; Presenting Part Visible Datetime: 07/06/2020 22:20 STAGE 2 Pushing Position: Pushing with Contractions Stage 2 Comments: pushing with CNM Datetime: 07/06/2020 22:12 VAGINAL EXAM Dilatation (cm): 10.0 Effacement (%): 100 Station: 1 Exam by: H Almena CNM Vaginal Bleeding: Small Datetime: 07/06/2020 22:11 Provider Reviewed Strip: Yes Strip Reviewed by: H Gilbert CNM COMMUNICATION Communication: Provider at Bedside Datetime: 07/06/2020 22:08 Actions for Decelerations: Side to Side Patient Position/Activity: Right Lateral Datetime: 07/06/2020 21:59 Anesthesia Level Check: T9 Datetime: 07/06/2020 21:38 Contraction Comments: RN at bedside palpating ctxs and adjusting toco Datetime: 07/06/2020 21:20 Respirations: 21 Temperature (C): 37.6 Datetime: 07/06/2020 21:16 Membrane Comments: small 1x3cm blood clot noted to chux with moderate vaginal bleeding, pericare do ne, will monitor Hygiene: [place] Care; Underpad Changed Datetime: 07/06/2020 21:09 Vital Sign Comments: cuff adjusted, BP retaken on R arm Datetime: 07/06/2020 21:08 Monitor Interventions for FHR: Ultrasound Adjusted Pain Presence: None/Denies Datetime: 07/06/2020 20:30 FHR Baseline Changes: No Baseline Change Pain Coping: Sleeping Datetime: 07/06/2020 20:27 PATIENT CARE IV/Blood Work: New IV Bag Hung; IV Bag Number @ 2 Datetime: 07/06/2020 20:09 SpO2 (%): 100 Datetime: 07/06/2020 20:02 TEACHING Instructional Method: Verbal; Verbalized Understanding Unit Routine: Safety/Fall Risk Prevention Datetime: 07/06/2020 20:01 Monitor Interventions for UA: [place] Adjusted Datetime: 07/06/2020 19:36 Provider Notified (Name): Margot Hunt CNM Notification Reason: Status Update; Labor Status; Membrane Status Datetime: 07/06/2020 19:23 Membrane Status: Ruptured Membranes Rupture Method: Spontaneous Amniotic Fluid Color: Clear Amniotic Fluid Amount: Small Amniotic Fluid Odor: None Datetime: 07/06/2020 19:20 Plan of Care: Plan of Care Discussed; Vaginal Delivery Labor/Induction: Labor Stages; Interventions; Activity Pain Management: Epidural Datetime: 07/06/2020 19:18 MATERNAL ASSESSMENT Level of Consciousness: Alert DTR's/Clonus: DTRs 2+; No Clonus Headache: Denies Breath Sounds, Left: Clear and Equal Breath Sounds, Right: Clear and Equal Nausea/Vomiting: Denies RUQ Epigastric Pain: Denies Datetime: 07/06/2020 19:15 Epidural Procedure: Completed Epidural Procedure Other: Pump Started Datetime: 07/06/2020 19:03 Anesthesia Comments: lying down Datetime: 07/06/2020 18:48 ANESTHESIA Epidural Positioning: Sitting Datetime: 07/06/2020 18:34 Communication Comments: provider updated Datetime: 07/06/2020 18:23 Cervix, Consistency: Soft Cervix, Position: Anterior Vaginal Exam Comments: pt requesting SVE, may want epidural. Datetime: 07/06/2020 18:16 MEDICATIONS Antiemetics/Antacids: Reglan 10 mg IV Datetime: 07/06/2020 17:24 PAIN Pain Scale: 8 Pain Type: Contraction Pain Location: Abdomen Pain Relief Measures: Comfort Measures Pain Assessment Comments: requesting pain meds, nitrous set up and instructed in use. Comfort Measures: Breathing/Relaxation; Coaching (Annotations: using nitrous with some relief, still moaning with contractions at times) Datetime: 07/06/2020 16:51 Temperature Route: Oral
== END 2020-07-08 13:50 | disposition home or self-care (01) | DRG 807 ==
LOC: WFO 08:08 → FBP 08:14 → UNDOADMOB 09:38 → WFO 09:38 → FBP 09:38 → INTOOBSV 16:58 → FBP 16:58 → OBSVTOIN 16:58 → FBP 07-07 08:56
PROVIDERS: ADMIT Advanced Practice Midwife; ATTEND Advanced Practice Midwife
PROC: 10E0XZZ Delivery of Products of Conception, External Approach (ICD-10-PCS; principal; 2020-07-06)
PROC: 0UQMXZZ Repair Vulva, External Approach (ICD-10-PCS; 2020-07-06)
DX: O71.82 Other specified trauma to perineum and vulva (principal); Z37.0 Single live birth; O69.81X0 Labor and delivery complicated by cord around neck, without compression, not applicable or unspecified; Z3A.39 39 weeks gestation of pregnancy; Z87.891 Personal history of nicotine dependence; Z20.822 Contact with and (suspected) exposure to COVID-19
CPT/HCPCS: 85025; 86850; 86900; 86901; 87635; A9270; G0378; J2765; J7120

== ENCOUNTER 2020-10-22 17:44 | Emergency (ER) | payer OTHER ==
[2020-10-22] MEDS ORDERED: ONDANSETRON 4 MG/2 ML VIAL IVP STA (17:54)
[2020-10-22] MEDS ORDERED: SODIUM CHLORIDE 0.9% 1,000 ML IV STA (17:54)
--- NOTE | 2020-10-22 18:08 | ED Physician Documentation ---
History of Present Illness - Stated complaint Stated Complaint: N/V/F/ABD PX - Chief complaint Chief Complaint: Abd Pain - History obtained from History obtained from: Patient - History of Present Illness Timing: Today Pain level max: 5 Pain level now: 4 - Additonal information Additional information: 25-year-old female presents to the emergency department with vomiting x4 today. Subsequently developed abdominal cramping and epigastric pain. Nothing makes it better or worse. No fevers. No chills. She states she is breast-feeding. She states she has had increased soreness to her nipples over the past 24 hours as well. Concerned about potential mastitis. No diarrhea. No constipation. Denies any possibility of current . Review of Systems Constitutional: denies: Fever, Chills Cardiac: denies: Chest pain / pressure Respiratory: denies: Cough GI: reports: Nausea, Vomiting. denies: Diarrhea, Hematemesis, Bloody / black stool : reports: Other (she is ). 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 Musculoskeletal: None Derm: None - Past Surgical History Past Surgical History: No - Present Medications Home Medications: Ambulatory Orders Medication Instructions Recorded Confirmed Ondansetron Odt [Zofran] 4 mg TL Q6H PRN #10 tablet 10/22/20 cephALEXin [Keflex] 500 mg PO Q6H #28 cap 10/22/20 - Allergies Allergies/Adverse Reactions: Allergies Allergy/AdvReac Type Severity Reaction Status Date / Time No Known Drug Allergies Allergy Verified 10/22/20 17:50 - Social History Does the pt smoke?: No Smoking Status: Former smoker Does the pt drink ETOH?: No Does the pt have substance abuse?: No - Immunizations Immunizations are current?: Yes - POLST Patient has POLST: No PD ED PE NORMAL - Vitals Vital signs reviewed: Yes - General General: Alert and oriented X 3, No acute distress, Well developed/nourished - HEENT HEENT: PERRL, Moist mucous membranes - Neck Neck: Supple, no meningeal sign - Cardiac Cardiac: RRR, Strong equal pulses - Respiratory Respiratory: No respiratory distress, Clear bilaterally - Abdomen Abdomen: Soft, Non distended, Other (Mild tenderness to palpation epigastric without peritoneal signs) - Back Back: No CVA TTP, No spinal TTP - Derm Derm: Warm and dry, Other (Patient with mild erythema to the bilateral breasts. No drainage. No abscess) - Extremities Extremities: No edema - Neuro Neuro: Alert and oriented X 3 - Psych Psych: Normal mood, Normal affect Results - Vitals Vitals: Vital Signs - 24 hr 10/22/20 10/22/20 10/22/20 17:50 18:16 19:22 Temperature 36.8 C Heart Rate 100 88 95 Respiratory 16 18 18 Rate Blood Pressure 106/69 99/74 93/60 O2 Saturation 97 100 99 Oxygen O2 Source Room air - Labs Labs: Laboratory Tests 10/22/20 10/22/20 10/22/20 17:58 18:00 18:00 WBC 5.1 RBC 4.80 Hgb 11.9 L Hct 37.6 MCV 78.3 L MCH 24.8 L MCHC 31.6 L RDW 14.5 Plt Count 285 MPV 9.3 Neut # (Auto) 4.5 Lymph # (Auto) 0.3 L [place] # (Auto) 0.2 Eos # (Auto) 0.1 Baso # (Auto) 0.0 Absolute Nucleated RBC 0.00 Nucleated RBC % 0.0 Sodium 135 Potassium 3.5 Chloride 101 Carbon Dioxide 19 L Anion Gap 15.0 H BUN 14 Creatinine 0.7 Estimated GFR (MDRD) 104 Glucose 94 Calcium 8.9 Total Bilirubin 1.1 H AST 20 ALT 25 Alkaline Phosphatase 69 Total Protein 8.0 Albumin 4.7 Globulin 3.3 Albumin/Globulin Ratio 1.4 Lipase 18 L Urine Color YELLOW Urine Clarity CLEAR Urine pH 5.5 Ur Specific [place] >=1.030 H Urine Protein NEGATIVE Urine Glucose (UA) NEGATIVE Urine Ketones >=80 H Urine Occult Blood NEGATIVE Urine Nitrite NEGATIVE Urine Bilirubin NEGATIVE Urine Urobilinogen 0.2 (NORMAL) Ur Leukocyte Esterase NEGATIVE Ur Microscopic Review NOT INDICATED Urine Culture Comments NOT INDICATED Urine HCG, Qual NEGATIVE PD MEDICAL DECISION MAKING - ED course Complexity details: reviewed results, re-evaluated patient, considered differential, d/w patient ED course: Patient given Toradol, Zofran and Keflex. Vomiting resolved. Abdominal pain resolved. Feels much better. Will place on Keflex for mastitis. Patient is well-appearing, nontoxic. Afebrile. Possible viral illness? Patient counseled regarding signs and symptoms for which I believe and urgent re-evaluation would be necessary. Patient with good understanding of and agreement to plan and is comfortable going home at this time This document was made in part using voice recognition software. While efforts are made to proofread this document, sound alike and grammatical errors may occur. Departure - Departure Disposition: 01 Home, Self Care Clinical Impression: Mastitis Vomiting Qualifiers: Vomiting type: unspecified Vomiting Intractability: non-intractable Nausea presence: with nausea Qualified Code(s): R11.2 - Nausea with vomiting, unspecified Condition: Good Instructions: ED Breast Infec, ED Nausea Vomiting Follow-Up: ROBYN BALDERAS MD [Primary Care Provider] - Within 1 week Prescriptions: cephALEXin [Keflex] 500 mg PO Q6H #28 cap Ondansetron Odt [Zofran] 4 mg TL Q6H PRN #10 tablet PRN Reason: Nausea / Vomiting Comments: Take all antibiotics until gone. Return if you worsen. Follow-up with your doctor for further care. This should improve over the next 24 hours. Drink plenty of fluids and rest Discharge Date/Time: 10/22/20 19:27
[2020-10-22 18:16] LABS: BASOPHILS % (AUTO) 0.2 %; EOSINOPHILS # (AUTO) 0.1 10^3/uL (0.0-0.7); HCT - HEMATOCRIT 37.6 % (37.0-47.0); HGB - HEMOGLOBIN 11.9 g/dL (12.0-16.0); LYMPHOCYTES # (AUTO) 0.3 10^3/uL (1.5-3.5); LYMPHOCYTES % (AUTO) 5.5 %; MEAN CORPUSCULAR HEMOGLOBIN 24.8 pg (27.0-31.0); MEAN CORPUSCULAR HGB CONC 31.6 g/dL (32.0-36.0); MEAN CORPUSCULAR VOLUME 78.3 fL (81.0-99.0); MEAN PLATELET VOLUME 9.3 fL (7.9-10.8); MONOCYTES # (AUTO) 0.2 10^3/uL (0.0-1.0); MONOCYTES % (AUTO) 4.1 %; NEUTROPHILS # (AUTO) 4.5 10^3/uL (1.5-6.6); PLT - PLATELET COUNT 285 10^3/uL (130-450); RED CELL DISTRIBUTION WIDTH 14.5 % (12.0-15.0); WHITE BLOOD COUNT 5.1 x10^3/uL (4.8-10.8)
[2020-10-22 18:21] LABS: GLUCOSE, URINE (UA) NEGATIVE (NEGATIVE); KETONES,URINE (UA) >=80 mg/dL (NEGATIVE); LEUKOCYTE ESTERASE, URINE NEGATIVE (NEGATIVE); NITRITE,URINE NEGATIVE (NEGATIVE); OCCULT BLOOD,URINE NEGATIVE (NEGATIVE); PH,URINE 5.5 PH (5.0-7.5); PROTEIN,URINE NEGATIVE (NEGATIVE); UROBILINOGEN,URINE 0.2 (NORMAL) E.U./dL (NORMAL)
[2020-10-22 18:24] LABS: CLARITY,URINE CLEAR (CLEAR)
[2020-10-22 18:25] LABS: BILIRUBIN,URINE NEGATIVE (NEGATIVE); HCG UR QUAL NEGATIVE; ICTOTEST,URINE NEGATIVE
[2020-10-22 18:28] LABS: ALBUMIN 4.7 g/dL (3.2-5.5); ALBUMIN/GLOBULIN RATIO 1.4 (1.0-2.2); BILIRUBIN,TOTAL 1.1 mg/dL (0.2-1.0); CALCIUM 8.9 mg/dL (8.5-10.3); CREATININE 0.7 mg/dL (0.4-1.0); POTASSIUM 3.5 mmol/L (3.5-5.0)
[2020-10-22] MEDS ORDERED: KETOROLAC 30 MG/ML VIAL IVP STA (18:30)
[2020-10-22] MEDS ORDERED: MAG HYDROX/AL HYDROX/SIMETH 30 ML UDC PO STA (18:44)
[2020-10-22] MEDS ORDERED: SUCRALFATE 1 GM/10 ML UDC PO STA (18:44)
[2020-10-22] MEDS ORDERED: cephALEXin 250 MG CAPSULE PO STA (19:12)
[2020-10-22 19:23] VITALS: BP 93/60
== END 2020-10-22 19:27 | disposition home or self-care (01) ==
LOC: ED 17:44
DX: N61.0 Mastitis without abscess (principal); R11.2 Nausea with vomiting, unspecified; R10.13 Epigastric pain; Z87.891 Personal history of nicotine dependence
CPT/HCPCS: 36415; 80053; 81003; 81025; 83690; 85025; 96361; 96374; 96375; 99283; 99284; A9270; 81001; 87086

== ENCOUNTER 2020-11-14 18:20 | Emergency (ER) | payer OTHER ==
[2020-11-14 18:30] VITALS: BP 111/70
[2020-11-14 18:43] LABS: RAPID STREP SCREEN Negative (Negative)
[2020-11-14] MEDS ORDERED: CHERRY SYRUP 10 ML UDC PO ONE (19:04)
[2020-11-14] MEDS ORDERED: DEXAMETHASONE 10 MG/ML VIAL PO STA (19:04)
[2020-11-14] MEDS ORDERED: PENICILLIN VK 250 MG TABLET PO STA (19:04)
--- NOTE | 2020-11-14 19:08 | ED Physician Documentation ---
History of Present Illness - Stated complaint Stated Complaint: SORE THROAT W/ WHITE SPOTS - Chief complaint Chief Complaint: Heent - History obtained from History obtained from: Patient - History of Present Illness Timing: Today Pain level max: 0 Pain level now: 0 - Additonal information Additional information: 25-year-old female presents the emergency department complaint of a sore throat today. She states she noticed white spots on her tonsils. Concern for strep. No fevers. No rhinorrhea or congestion. No cough. Worse with swallowing. Nothing makes it better. She is breast-feeding. 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) : None HEENT: None Psych: None Musculoskeletal: None Derm: None - Past Surgical History Past Surgical History: No - Present Medications Home Medications: Ambulatory Orders Medication Instructions Recorded Confirmed Penicillin V Potassium 500 mg PO Q6HR #40 tablet 11/14/20 - Allergies Allergies/Adverse Reactions: Allergies Allergy/AdvReac Type Severity Reaction Status Date / Time No Known Drug Allergies Allergy Verified 11/14/20 18:29 - Social History Does the pt smoke?: No Smoking Status: Never smoker Does the pt drink ETOH?: No Does the pt have substance abuse?: No - Immunizations Immunizations are current?: Yes - POLST Patient has POLST: No PD ED PE NORMAL - Vitals Vital signs reviewed: Yes - General General: Alert and oriented X 3, No acute distress - HEENT HEENT: Moist mucous membranes, Other (Posterior oropharynx is erythematous with tonsillar exudates. Normal phonation. No trismus. Uvula midline.) - Neck Neck: Supple, no meningeal sign, No adenopathy - Cardiac Cardiac: RRR, Strong equal pulses - Respiratory Respiratory: No respiratory distress, Clear bilaterally - Derm Derm: Warm and dry, No rash - Neuro Neuro: Alert and oriented X 3 Results - Vitals Vitals: Vital Signs - 24 hr 11/14/20 18:27 Temperature 36.5 C Heart Rate 100 Respiratory 16 Rate Blood Pressure 111/70 O2 Saturation 98 Oxygen O2 Source Room air - Labs Labs: Laboratory Tests 11/14/20 18:33 Group A Strep Rapid Negative PD MEDICAL DECISION MAKING - ED course Complexity details: considered differential, d/w patient ED course: Patient with pharyngitis. Rapid strep is negative, there has been a significant number of group C and group F strep recently. Therefore we will treat her empirically. Patient is well-appearing, nontoxic. Afebrile. Decadron given. Patient counseled regarding signs and symptoms for which I believe and urgent re-evaluation would be necessary. Patient with good understanding of and agreement to plan and is comfortable going home at this time This document was made in part using voice recognition software. While efforts are made to proofread this document, sound alike and grammatical errors may occur. Departure - Departure Disposition: 01 Home, Self Care Clinical Impression: Pharyngitis Qualifiers: Pharyngitis/tonsillitis etiology: unspecified etiology Qualified Code(s): J02.9 - Acute pharyngitis, unspecified Condition: Good Instructions: ED Strep Pharyngitis Poss Follow-Up: ROBYN BALDERAS MD [Primary Care Provider] - As Needed Prescriptions: Penicillin V Potassium 500 mg PO Q6HR #40 tablet Comments: Take all antibiotics until gone. Return if you worsen. A throat culture was also performed, if we need to change antibiotics, we will call you. Discharge Date/Time: 11/14/20 19:17
== END 2020-11-14 19:17 | disposition home or self-care (01) ==
LOC: ED 18:20
DX: J02.9 Acute pharyngitis, unspecified (principal)
CPT/HCPCS: 87070; 87430; 99283; 99284; A9270